=== PATIENT | female | born 2005 | race Caucasian/White ===

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

== ENCOUNTER → 2025-08-18 | Outpatient (REF) | payer BC ==
[2025-08-18 14:52] LABS: IRON (FE) 28.0 UG/DL (50-170); PERCENT SATURATION 7.8 % (13.2-45.0)
== END ==
LOC: M LAB REF 14:07
PROVIDERS: ATTEND Internal Medicine
DX: D50.9 Iron deficiency anemia, unspecified (principal)